=== PATIENT | male | born 1955 | race Caucasian/White ===

== ENCOUNTER 2021-02-08 20:04 | Inpatient (IN) | payer OTHER ==
[~2021-02-08] VITALS: Ht 182.9 cm; Wt 87.1 kg
--- NOTE | 2021-02-08 20:15 | NUR ---
PT BIBEMS FROM HOME C/O LOW O2 SAT 79%. COVID (+) 02/06/21. PT STATES HE HAD BODY ACHES AND CHILLS 2 WEEKS AGO. PT CURRENTLY DENIES ANY SOB. AMBULATORY ALERT AND ORIENTED X4.
--- NOTE | 2021-02-08 20:20 | NUR ---
BLOOD AND URINE COLLECTED AND SENT TO THE LAB.
--- NOTE | 2021-02-08 20:21 | NUR ---
COVID SWAB COLLECTED AND SENT TO LAB.
[2021-02-08 20:24] LABS: BASOPHILS % (AUTO) 0.2 % (0.0-2.0); HEMATOCRIT 45 % (39-51); HEMOGLOBIN 14.9 g/dL (13.5-17.5); LYMPHOCYTES # (AUTO) 0.8 K/uL (0.8-4.8); LYMPHOCYTES % (AUTO) 8.1 % (20.0-44.0); MEAN CORPUSCULAR HGB CONC 33 g/dl (31.0-36.0); MEAN CORPUSCULAR VOLUME 86 fL (80-96); MONOCYTES # (AUTO) 0.2 K/uL (0.1-1.30); MONOCYTES % (AUTO) 2.4 % (2.0-12.0); NEUTROPHILS # (AUTO) 8.8 K/uL (1.8-8.9); NEUTROPHILS % (AUTO) 89.3 % (43.0-81.0); PLATELET COUNT (AUTO) 196 K/uL (150-450); RED BLOOD CELL COUNT(AUTO) 5.21 MIL/uL (4.5-6.0); WHITE BLOOD COUNT (AUTO) 9.8 K/uL (4.3-11.0)
[2021-02-08] MEDS ORDERED: CEFTRIAXONE 1GM BAG (ER ONLY) 50 ML IV ONE ×2 (20:26→20:30)
[2021-02-08] MEDS ORDERED: DEXAMETHASONE SOD PHOSPHATE 10 MG/ML VIAL ONE (20:27)
[2021-02-08] MEDS ORDERED: AZITHROMYCIN 500 MG VIAL ONE (20:27)
[2021-02-08] MEDS ORDERED: DEXAMETHASONE SOD PHOSPHATE 10 MG/ML VIAL IV ONE (20:30)
[2021-02-08] MEDS ORDERED: AZITHROMYCIN 500 MG in IV D5W 250 ML IV ONE (20:30)
[2021-02-08] MEDS ORDERED: IV NS 0.9% 500 ML IV ONE (20:30)
--- NOTE | 2021-02-08 20:30 | NUR ---
ACCELERATOR OPERATOR AT BEDSIDE
[2021-02-08 20:46] LABS: CALCIUM, SERUM 7.9 mg/dL (8.5-10.1); CARBON DIOXIDE 26 mmol/L (21-32); CHLORIDE 103 mmol/L (98-107); CREATININE 1.5 mg/dL (0.6-1.3); GLUCOSE 214 mg/dL (74-106); SODIUM SERUM 140 mmol/L (136-145); UREA NITROGEN, BLOOD 22 mg/dL (7-18)
[2021-02-08 20:52] LABS: ALANINE AMINOTRANSFERASE 22 U/L (12-78); ALBUMIN 2.8 g/dL (3.4-5.0); ALKALINE PHOSPHATASE 59 U/L (46-116); ASPARTATE AMINOTRANSFERASE 30 U/L (15-37); BILIRUBIN,TOTAL 0.4 mg/dL (0.2-1.0); TOTAL PROTEIN, SERUM 7.2 g/dL (6.4-8.2)
[2021-02-08 21:21] LABS: CREATINE KINASE, TOTAL 103 U/L (39-308)
[2021-02-08 21:23] LABS: C-REACTIVE PROTEIN 15.4 mg/dL (0.0-0.9)
--- NOTE | 2021-02-08 21:25 | NUR ---
PANEL PAGED PER DR KRAUSE,
[2021-02-08 21:32] LABS: D-DIMER 0.76 mg/L(FEU (0.17-0.50)
[2021-02-08 21:48] LABS: FERRITIN 589 ng/mL (8-388)
--- NOTE | 2021-02-08 22:03 | NUR ---
UPDATED DAUGHTER ON FATHERS CONDITION.
--- NOTE | 2021-02-08 23:06 | NUR ---
COPIES OF LABS GIVEN TO DAUGHTER.
--- NOTE | 2021-02-08 23:09 | NUR ---
SPOKE TO CHARGE [facility], [place] BEDS ARE UNAVAILABLE. WILL BE NOTIFIED WHEN READY.
[2021-02-08] MEDS ORDERED: ZOLPIDEM TARTRATE 5 MG TABLET PO PRN (23:30)
[2021-02-08] MEDS ORDERED: Z GUARD REMEDY 2 OZ OINT TP PRN (23:30)
[2021-02-08] MEDS ORDERED: ONDANSETRON HCL/PF 4 MG/2 ML VIAL IVP PRN (23:30)
[2021-02-08] MEDS ORDERED: ACETAMINOPHEN 325 MG TABLET PO PRN (23:30)
[2021-02-08] MEDS: ENOXAPARIN SODIUM 40 MG/0.4 ML DISP.SYRIN SQ SCH (23:30)
--- NOTE | 2021-02-08 23:42 | NUR ---
LACTIC 3.7
[2021-02-08 23:49] LABS: BILIRUBIN,DIRECT 0.1 mg/dL (0.0-0.2)
[2021-02-09] VITALS (17 sets, daily range): BP systolic 110–158; BP diastolic 54–95
[2021-02-09] MEDS ORDERED: ENOXAPARIN SODIUM 40 MG/0.4 ML DISP.SYRIN SQ ONE (00:34)
--- NOTE | 2021-02-09 01:37 | NUR ---
DR. ARPIT FOSTER WITH PATIENT BEING ON HI-FLOW NASAL CANNULA.
--- NOTE | 2021-02-09 01:38 | NUR ---
report given to nurse pelaez.
--- NOTE | 2021-02-09 01:58 | NUR ---
pt discharged to room 108 in stable condition per acls policy.
--- NOTE | 2021-02-09 02:00 | NUR ---
ADMISSION NOTE. PATIENT ADMITTED TO ROOM 108 WITH DX OF VIRAL COVID PNEUMONIAE. TO ARPIT SANTIAGO DNP. NEW ORDERS RECIEVED. PT IS AXOX3 PT REPORTS HE FEELS CHILLS FATIGUE AND LOSS OF APPETITE. PT AMBULATED TO BATHROOM AND WAS FOUND TO HAVE SPO2 OF 75% PLACED BACK ON NON REBREATHER MASK AND PATIENT SATURATINT AT 88-90 % PER REPORT FROM ER RESPIRATORY IS TO COME AND PLACE PATIENT ON HIGH FLOW OXYGEN TO IMPROVE PATIENTS OXYGEN SATURATION. PT REPORTS FEELING MILDLY SHORT OF BREATH BREATHING IS TACHYPNEIC AND LABORED. EFT AC 18 GAUGE IS PRESENT. PER PATIENT HE CALLED EMS AFTER FEELING WEEK AND SOB AT HOME. AND WAS BROUGHT INTO ER. HX OF TESTING PPOSITIVE COVID TEST 02/06/21. COVID PRECAUTIONS IN PLACE. WILL CONT TO MONITOR AND CARRY OUT NEW ORDERS.
--- NOTE | 2021-02-09 02:19 | NUR ---
PT IS AWAKE AND ALERT ON NRB CAME FROM ER. PER DR SANTIAGO, PLACE PT ON HFNC 40L, 100% FIO2. RODRIGUEZ GRAFF AT BEDSIDE. WILL CONTINUE TO MONITOR.
--- NOTE | 2021-02-09 02:30 | NUR ---
ARNOLDO [phone] ARNOLDO CALLED. PATIENT STATES ITS OK TO UPDATE HER ON HIS CONDITION. UPDATED WITH CURRENT INFORMATION QUESTIONS CONCERNS ADDRESSED.
[2021-02-09 05:33] LABS: ABG BASE EXCESS 1.3 mmol/L; ABG OXYGEN SATURATION 91.1 % (92.0-98.5); ABG PCO2 29.6 mmHg (35.0-45.0); ABG PH 7.512 (7.350-7.450); ABG PO2 53.7 mmHg (75.0-100.0); AaDO2 629.7 mmHg; COHb 0.1 % (0.5-1.5); MetHb 0.3 % (0.0-1.5); O2Hb 90.7 % (94.0-97.0); SITE, ABG Right Radial; VENT MODE, BG VAPOTHERM 100% 40LPM
--- NOTE | 2021-02-09 05:51 | NUR ---
respiratory therapist jose completed abg. based on results patient was placed on non rebreather mask as well as on high flow oxygen. patient saturating 94% spo2. message left for cone marker provider sushant camejo notifying of results. will cont to monitor. .
[2021-02-09 06:24] LABS: BASOPHILS % (AUTO) 0.1 % (0.0-2.0); HEMATOCRIT 42 % (39-51); HEMOGLOBIN 14.3 g/dL (13.5-17.5); LYMPHOCYTES # (AUTO) 0.6 K/uL (0.8-4.8); LYMPHOCYTES % (AUTO) 6.2 % (20.0-44.0); MEAN CORPUSCULAR HGB CONC 34 g/dl (31.0-36.0); MEAN CORPUSCULAR VOLUME 85 fL (80-96); MONOCYTES # (AUTO) 0.4 K/uL (0.1-1.30); MONOCYTES % (AUTO) 4.1 % (2.0-12.0); NEUTROPHILS # (AUTO) 9.1 K/uL (1.8-8.9); NEUTROPHILS % (AUTO) 89.6 % (43.0-81.0); PLATELET COUNT (AUTO) 191 K/uL (150-450); RED BLOOD CELL COUNT(AUTO) 4.96 MIL/uL (4.5-6.0); WHITE BLOOD COUNT (AUTO) 10.1 K/uL (4.3-11.0)
[2021-02-09 07:06] LABS: ALBUMIN 2.5 g/dL (3.4-5.0); BILIRUBIN,TOTAL 0.4 mg/dL (0.2-1.0); CALCIUM, SERUM 7.7 mg/dL (8.5-10.1); CREATININE 1.2 mg/dL (0.6-1.3); MAGNESIUM 1.9 mg/dL (1.8-2.4); PHOSPHORUS 2.8 mg/dL (2.5-4.9); POTASSIUM 4.4 mmol/L (3.5-5.1); TOTAL PROTEIN, SERUM 6.6 g/dL (6.4-8.2)
[2021-02-09 07:18] LABS: THYROID STIMULATING HORMONE 0.24 uIU/mL (0.358-3.74)
[2021-02-09] MEDS: PANTOPRAZOLE 40 MG TABLET.DR PO SCH (07:43)
[2021-02-09] MEDS ORDERED: DEXA4TAB PO (08:06)
[2021-02-09] MEDS ORDERED: BENZ-38 PO (08:06)
[2021-02-09] MEDS ORDERED: LEVO500T90 PO (08:06)
[2021-02-09] MEDS ORDERED: ALBU18HF2 INH (08:06)
[2021-02-09] MEDS: ENOXAPARIN SODIUM 40 MG/0.4 ML DISP.SYRIN SQ SCH ×2 (08:25→21:20)
[2021-02-09] MEDS ORDERED: DEXAMETHASONE SOD PHOSPHATE 10 MG/ML VIAL IV SCH (09:00)
[2021-02-09] MEDS: DEXAMETHASONE SOD PHOSPHATE 10 MG/ML VIAL IV SCH (09:10)
[2021-02-09 09:35] LABS: ABG BASE EXCESS 1.6 mmol/L; ABG PCO2 33.1 mmHg (35.0-45.0); ABG PH 7.485 (7.350-7.450); ABG PO2 46.8 mmHg (75.0-100.0); AaDO2 633.1 mmHg; COHb 0.5 % (0.5-1.5); MetHb 0.1 % (0.0-1.5); O2Hb 86.5 % (94.0-97.0); SITE, ABG Right Radial
--- NOTE | 2021-02-09 09:43 | NUR ---
RT NOTE ABG RESULTS RELAYED TO MD BOYER.
[2021-02-09] MEDS: IV LR 1000 ML 1,000 ML IV PRN (10:10)
--- NOTE | 2021-02-09 10:10 | NUR ---
PT ARRIVED TO ICU ROOM 259 AT 1010 FROM 108 AT THIS TIME. BEDSIDE REPORT RECEIVED FROM AMARILYS FRIAS. PT ALERT OX3. HIGH FLOW NASAL CANNULA AND NON REBREATHER MASK ON PATIENT. PATIENTS SATS ARE 88-89% AT THIS TIME. PT SETTLED IN ROOM. PT INSTRUCTED TO PRONE MUCH POSSIBLE TO HELP WITH O2 SATURATIONS, PT AGREED. PER DR BOYER IF PATIENT CAN KEEP HIS O2 SATS OVER 90 WITH PRONING PT DOES NOT NEED TO BE INTUBATED AT THIS TIME. SCHEDULED ABG ORDERS TO FOLLOW UP. PT CHECKED ON HOURLY AND PRN BY NURSING STAFF.
[2021-02-09 10:24] LABS: VENT MODE, BG HFNC 40L/100% +NRB
[2021-02-09] MEDS ORDERED: TOCILIZUMAB 400 MG in IV NS 0.9% 80 ML IV ONE (10:30)
[2021-02-09] MEDS ORDERED: REMDESIVIR (CHARGED) 200 MG, *LOADING DOSE 1 EA in IV NS 0.9% 210 ML IV ONE (11:00)
[2021-02-09] MEDS: FLUTICASONE/VILANTEROL 1 EACH BLST.W.DEV IH SCH (11:30)
[2021-02-09 12:06] LABS: ABG BASE EXCESS 1.1 mmol/L; ABG OXYGEN SATURATION 91.3 % (92.0-98.5); ABG PCO2 31.6 mmHg (35.0-45.0); ABG PO2 56.8 mmHg (75.0-100.0); AaDO2 624.6 mmHg; COHb 0.5 % (0.5-1.5); MetHb 0.2 % (0.0-1.5); O2Hb 90.7 % (94.0-97.0); VENT MODE, BG HFNC 40 LPM +NRB
--- NOTE | 2021-02-09 12:09 | NUR ---
RT NOTE ABG RESULTS RELAYED TO MD BOYER.
[2021-02-09] MEDS ORDERED: TOCILIZUMAB 800 MG in IV NS 0.9% 60 ML IV ONE (15:00)
--- NOTE | 2021-02-09 18:53 | NUR ---
END OF SHIFT NOTE: PT IS COOPERATIVE WITH CARE. PT PRONED FOR A FEW HOURS THEN WITH ASSISTANCE TURNED TO RIGHT SIDE THEN LEFT SIDE. PT'S SATS MUCH BETTER IN PRONE POSITION, 97-98%. ON RIGHT SIDE 95-96%, LEFT SIDE 88-93%. PT ATTEMPTED TO SIT UP WITH HOB HIGH TO EAT DINNER BUT PATIENT DESATURATED AND PATIENT STATED HE WASN'T HUNGRY. RN ASSISTED PATIENT TO HIS SIDE WITHOUT DIFFICULTY, PT'S SATS RETURNED TO >90%. MIDLINE IS ORDERED FOR A MORE STABLE IV SITE WITH PATIENT PRONING AND TURNED COMPLETELY SIDE TO SIDE. MIDLINE RN SUPPOSED TO COME TONIGHT, WILL ENDORSE TO NEXT SHIFT. PT CHECKED ON HOURLY AND PRN BY NURSING STAFF.
[2021-02-09] MEDS: AZITHROMYCIN 500 MG in IV D5W 250 ML IV SCH (21:11)
[2021-02-09] MEDS: CEFTRIAXONE 1 G in IV D5W 50 ML IV SCH (21:11)
[2021-02-09] MEDS ORDERED: IV NS 0.9% 250 ML IV PRN (22:00)
--- NOTE | 2021-02-09 23:26 | NUR ---
patient awake alert with high flow on at 100% non rebreather at 15 lit. sat 915 lungs with rhonci to listen. with productive cough. has new midline in upper left arm infusing ivpb rocephin and zithromax. lr at 40 hr. patient on monitor sinus is voiding well in urinal at times sat drops below 90% 88, 87, no signs of distress at this time.
[2021-02-10] VITALS (26 sets, daily range): BP systolic 88–153; BP diastolic 34–104
[2021-02-10 04:27] LABS: BASOPHILS % (AUTO) 0.1 % (0.0-2.0); HEMATOCRIT 41 % (39-51); HEMOGLOBIN 14.1 g/dL (13.5-17.5); LYMPHOCYTES # (AUTO) 0.8 K/uL (0.8-4.8); LYMPHOCYTES % (AUTO) 8.2 % (20.0-44.0); MEAN CORPUSCULAR HGB CONC 34 g/dl (31.0-36.0); MEAN CORPUSCULAR VOLUME 85 fL (80-96); MONOCYTES # (AUTO) 0.7 K/uL (0.1-1.30); NEUTROPHILS # (AUTO) 8.2 K/uL (1.8-8.9); NEUTROPHILS % (AUTO) 84.7 % (43.0-81.0); PLATELET COUNT (AUTO) 216 K/uL (150-450); RED BLOOD CELL COUNT(AUTO) 4.86 MIL/uL (4.5-6.0); WHITE BLOOD COUNT (AUTO) 9.7 K/uL (4.3-11.0)
[2021-02-10 04:44] LABS: ALBUMIN 2.2 g/dL (3.4-5.0); BILIRUBIN,DIRECT 0.1 mg/dL (0.0-0.2); BILIRUBIN,TOTAL 0.4 mg/dL (0.2-1.0); MAGNESIUM 2.1 mg/dL (1.8-2.4); PHOSPHORUS 3.1 mg/dL (2.5-4.9); POTASSIUM 4.2 mmol/L (3.5-5.1); TOTAL PROTEIN, SERUM 6.3 g/dL (6.4-8.2)
[2021-02-10 04:49] LABS: CALCIUM, SERUM 7.4 mg/dL (8.5-10.1)
--- NOTE | 2021-02-10 07:30 | NUR ---
OPENING NOTE: REPORT RECEIVED FROM ENIO FRIAS. PT ALERT OX3. PT IS VERY COOPERATIVE WITH POSITIONING. PT'S PRONES LONG HE CAN, LAYS ON HIS SIDES AND KEEPS HIS NRB AND HI FLOW NASAL CANNULA ON ALL THE TIME. PT IS STAYING CALM AND APPEARS TO HAVE A POSITIVE OUTLOOK ON HIS CONDITION. PT CHECKED ON HOURLY AND PRN BY NURSING STAFF.
[2021-02-10] MEDS: FLUTICASONE/VILANTEROL 1 EACH BLST.W.DEV IH SCH (07:47)
[2021-02-10] MEDS: PANTOPRAZOLE 40 MG TABLET.DR PO SCH (07:48)
[2021-02-10] MEDS: DEXAMETHASONE SOD PHOSPHATE 10 MG/ML VIAL IV SCH (07:48)
[2021-02-10] MEDS: ENOXAPARIN SODIUM 40 MG/0.4 ML DISP.SYRIN SQ SCH ×2 (07:49→22:05)
[2021-02-10 10:25] LABS: ABG BASE EXCESS 2.6 mmol/L; ABG OXYGEN SATURATION 94.4 % (92.0-98.5); ABG PCO2 35.4 mmHg (35.0-45.0); ABG PH 7.479 (7.350-7.450); ABG PO2 65.9 mmHg (75.0-100.0); AaDO2 611.7 mmHg; COHb 0.3 % (0.5-1.5); MetHb 0.2 % (0.0-1.5); O2Hb 93.9 % (94.0-97.0); SITE, ABG Right Radial; VENT MODE, BG HFNC 40L/100%
[2021-02-10] MEDS: REMDESIVIR (CHARGED) 100 MG in IV NS 0.9% 100 ML IV SCH (11:34)
[2021-02-10] MEDS: IV LR 1000 ML 1,000 ML IV PRN (11:34)
--- NOTE | 2021-02-10 19:21 | NUR ---
END OF SHIFT NOTE: PT HAD AN UNEVENTFUL DAY. PT COMPLIANT ALL DAY WITH LYING PRONE OR ON EITHER SIDE. SATS AROUND 97% ALL DAY. PT'S COLOR APPEARS BETTER THAN THIS AM. PT IN GOOD SPIRITS, STAYING CALM. NO BM THIS SHIFT. PT REFUSED TO EAT MORE THAN SOME JELLO DUE TO HIS MOUTH BEING SORE. MEDS ORDERED TO HELP WITH PATIENTS MOUTH, WILL START TONIGHT. PT CHECKED ON HOURLY AND PRN BY NURSING STAFF.
--- NOTE | 2021-02-10 19:30 | NUR ---
RN NOTE RECEIVED PATIENT IN BED. ON OXYGEN 40L HIGH FLOW NASAL CANNULA AND 15L NONREBREATHER. SOB NOTED WHEN REPOSITIONING. NO C/O PAIN. EXTERNAL TELE MONITOR SINUS JENN AND SINUS RHYTHM. IN NO APPARENT DISTRESS. IV ACCESS IN SHERYL MIDLINE RUNNING LR@40ML/HR. RAC PATENT AND SALINE LOCKED. BED IS LOW AND LOCKED, HOB ELEVATED IN SEMI FOWLERS, SIDE RIAL SUP X2, CALL LIGHT WITHIN REACH. PATIENT IN RIGHT LATERAL POSITION. WILL CONTINUE TO MONITOR THROUGHOUT SHIFT.
[2021-02-10] MEDS: AZITHROMYCIN 500 MG in IV D5W 250 ML IV SCH (22:04)
[2021-02-10] MEDS: NYSTATIN (PYXIS) 500,000 UNIT/5 ML ORAL.SUSP PO SCH (22:04)
[2021-02-10] MEDS: FLUCONAZOLE (100 MG) 100 MG TABLET PO SCH (22:04)
[2021-02-10] MEDS: CEFTRIAXONE 1 G in IV D5W 50 ML IV SCH (22:04)
[2021-02-11] VITALS (24 sets, daily range): BP systolic 121–174; BP diastolic 65–101
[2021-02-11] MEDS: NYSTATIN (PYXIS) 500,000 UNIT/5 ML ORAL.SUSP PO SCH ×4 (03:15→20:00)
[2021-02-11 05:24] LABS: BASOPHILS % (AUTO) 0.1 % (0.0-2.0); HEMATOCRIT 43 % (39-51); HEMOGLOBIN 14.5 g/dL (13.5-17.5); LYMPHOCYTES # (AUTO) 0.7 K/uL (0.8-4.8); LYMPHOCYTES % (AUTO) 7.7 % (20.0-44.0); MEAN CORPUSCULAR HGB CONC 34 g/dl (31.0-36.0); MEAN CORPUSCULAR VOLUME 85 fL (80-96); MONOCYTES # (AUTO) 0.7 K/uL (0.1-1.30); MONOCYTES % (AUTO) 7.6 % (2.0-12.0); NEUTROPHILS % (AUTO) 84.6 % (43.0-81.0); PLATELET COUNT (AUTO) 246 K/uL (150-450); RED BLOOD CELL COUNT(AUTO) 5.04 MIL/uL (4.5-6.0); WHITE BLOOD COUNT (AUTO) 9.4 K/uL (4.3-11.0)
[2021-02-11 05:45] LABS: ALBUMIN 2.2 g/dL (3.4-5.0); BILIRUBIN,DIRECT 0.1 mg/dL (0.0-0.2); BILIRUBIN,TOTAL 0.6 mg/dL (0.2-1.0); CALCIUM, SERUM 7.6 mg/dL (8.5-10.1); MAGNESIUM 2.3 mg/dL (1.8-2.4); PHOSPHORUS 3.2 mg/dL (2.5-4.9); POTASSIUM 4.1 mmol/L (3.5-5.1); TOTAL PROTEIN, SERUM 6.1 g/dL (6.4-8.2)
[2021-02-11] MEDS: IV LR 1000 ML 1,000 ML IV PRN (06:29)
--- NOTE | 2021-02-11 07:02 | NUR ---
RN NOTE PATIENT RESTING IN BED. REMAINS ON OXYGEN 40L HIGH FLOW NASAL CANNULA AND 15L NONREBREATHER. NO PAIN. TELE MONITOR SINUS JENN AND SINUS RHYTHM THROUGHOUT SHIFT. NO DISTRESS. IV IN SHERYL MIDLINE RUNNING LR@40ML/HR. BED REMAINS LOW AND LOCKED, HOB ELEVATED IN SEMI FOWLERS, SIDE RIAL SUP X2, CALL LIGHT WITHIN REACH. PATIENT IS MOST COMFORTABLE IN RIGHT LATERAL POSITION. WILL ENDORSE TO ONCOMING SHIFT.
--- NOTE | 2021-02-11 07:30 | NUR ---
OPENING NOTE: REPORT RECEIVED FROM ROMMEL FRIAS. NO SIGNIFICANT CHANGES OVERNIGHT PER REPORT. PT CONTINUES TO BE COMPLIANT WITH CARE. 1 BM OVERNIGHT. PT CHECKED ON HOURLY BY NURSING STAFF
[2021-02-11] MEDS: FLUTICASONE/VILANTEROL 1 EACH BLST.W.DEV IH SCH (07:57)
[2021-02-11] MEDS: DEXAMETHASONE SOD PHOSPHATE 10 MG/ML VIAL IV SCH (07:57)
[2021-02-11] MEDS: PANTOPRAZOLE 40 MG TABLET.DR PO SCH (07:57)
[2021-02-11] MEDS: FLUCONAZOLE (100 MG) 100 MG TABLET PO SCH (07:57)
[2021-02-11] MEDS: ENOXAPARIN SODIUM 40 MG/0.4 ML DISP.SYRIN SQ SCH ×2 (07:59→19:15)
[2021-02-11] MEDS: REMDESIVIR (CHARGED) 100 MG in IV NS 0.9% 100 ML IV SCH (11:43)
[2021-02-11] MEDS: ENSURE CLEAR 237 ML LIQUID (MIX BERRY) PO SCH ×2 (13:30→17:18)
--- NOTE | 2021-02-11 17:05 | NUR ---
RT Pt was received awake and alert on high flow nasal cannula 40L and 100% FiO2 to with non rebreather at 15lpm. Non-rebreather was taken off and is now just on high flow nasal cannula 40L and 100%. Pt is cooperative and able to change positions on his own when told. No SOB or respiratory distress noted at this time. Addendum: 02/11/21 at 1755 by MARC MARTINEZ RT Amended: Links added.
--- NOTE | 2021-02-11 19:05 | NUR ---
RECEIVED PT ON BED AWAKE AA/O X3, ON HIGH FLOW 40L 100% SPO2 95% NO SIGNS OF SOB, PT IS ON RIGHT LATERAL POSITION, NO PAIN COMPLAINT, BEDSIDE MONITOR READS SINUS JENN 60'S HAVE SHERYL ML WITH ONGOING LR @ 40L/ HR INFUSING WELL HAVE LAC# 18 PATENT AND FLUSHED DRESSING CLEAN DRY AND INTACT, PT ABLE TO VERBALIZED NEEDS, BED ON LOWEST POSITION AND LOCKED SIDE RAILS UP X2 CALL LIGHT WITHIN REACH WILL CONT TO MONITOR
[2021-02-11] MEDS: CEFTRIAXONE 1 G in IV D5W 50 ML IV SCH (19:14)
--- NOTE | 2021-02-11 19:28 | NUR ---
END OF SHIFT NOTE: PT HAD A GOOD DAY. NRB TAKEN OFF TODAY. PT IS ON HIGH FLOW NASAL CANNULA 40L 100%. PT SAT UP IN THE CHAIR FOR LUNCH, ATE SMALL AMOUNT. PT PRONED FREQUENTLY TODAY. SCD'S APPLIED TO PATIENT BUT AFTER A FEW HOURS PT COMPLAINED THAT HE WAS GETTING TANGLED UP IN THEM WHEN HE TURNED AND ASKED IF THEY CAN BE OFF FOR A FEW HOURS. PT HAD 1 BM ON THIS SHIFT. APPETITE INCREASED TODAY. PT CHECKED ON HOURLY AND PRN BY NURSING STAFF.
[2021-02-11] MEDS: AZITHROMYCIN 500 MG in IV D5W 250 ML IV SCH (19:59)
[2021-02-12] VITALS (24 sets, daily range): BP systolic 116–158; BP diastolic 49–99
--- NOTE | 2021-02-12 01:07 | NUR ---
PT SLEEPING ON BED ON PRONE POSITION ON HIGH FLOW 02 40L 100% SPO2 98% NO SIGN OF RESPIRATORY DISTRESS, NO PAIN COMPLAINT WILL CONT TO MONITOR
[2021-02-12] MEDS: NYSTATIN (PYXIS) 500,000 UNIT/5 ML ORAL.SUSP PO SCH ×4 (03:11→20:04)
[2021-02-12 04:57] LABS: BASOPHILS % (AUTO) 0.2 % (0.0-2.0); EOSINOPHILS % (AUTO) 0.2 % (0.0-6.0); HEMATOCRIT 43 % (39-51); HEMOGLOBIN 14.8 g/dL (13.5-17.5); LYMPHOCYTES # (AUTO) 0.9 K/uL (0.8-4.8); LYMPHOCYTES % (AUTO) 10.8 % (20.0-44.0); MEAN CORPUSCULAR HGB CONC 34 g/dl (31.0-36.0); MEAN CORPUSCULAR VOLUME 84 fL (80-96); MONOCYTES # (AUTO) 0.6 K/uL (0.1-1.30); MONOCYTES % (AUTO) 6.6 % (2.0-12.0); NEUTROPHILS # (AUTO) 7.2 K/uL (1.8-8.9); NEUTROPHILS % (AUTO) 82.2 % (43.0-81.0); PLATELET COUNT (AUTO) 246 K/uL (150-450); RED BLOOD CELL COUNT(AUTO) 5.14 MIL/uL (4.5-6.0); WHITE BLOOD COUNT (AUTO) 8.8 K/uL (4.3-11.0)
[2021-02-12 05:09] LABS: ALBUMIN 2.3 g/dL (3.4-5.0); BILIRUBIN,DIRECT 0.2 mg/dL (0.0-0.2); BILIRUBIN,TOTAL 0.8 mg/dL (0.2-1.0); CALCIUM, SERUM 7.9 mg/dL (8.5-10.1); CREATININE 0.9 mg/dL (0.6-1.3); POTASSIUM 3.9 mmol/L (3.5-5.1); TOTAL PROTEIN, SERUM 5.9 g/dL (6.4-8.2)
[2021-02-12] MEDS: IV LR 1000 ML 1,000 ML IV PRN (06:37)
--- NOTE | 2021-02-12 06:53 | NUR ---
PT LYING ON BED AWAKE STILL ON HIGH FLOW 02 40L 100% SPO2 96% NO SIGN OF RESPIRATORY DISTRESS, NO PAIN COMPLAINT BEDSIDE MONITOR READS SINUS RHYTHM 60'S NO SIGNIFICANT CHANGES ON CONDITION NOTED ALL NEEDS ATTENDED, ALL DUE MEDS GIVEN BED ON LOWEST POSITION AND LOCKED SIDE RAILS UP X 2 CALL LIGHT WITHIN REACH WILL ENDORSED TO AM SHIFT NURSE
[2021-02-12] MEDS: FLUTICASONE/VILANTEROL 1 EACH BLST.W.DEV IH SCH (08:00)
--- NOTE | 2021-02-12 08:00 | NUR ---
RN NOTES RECEIVED PATIENT A/A/O X3 ON HIGH FLOW 02 40L 90% -CDHANGED VIA RT, SPO2 96% NO SIGN OF RESPIRATORY DISTRESS, NO PAIN COMPLAINT BEDSIDE MONITOR READS SINUS RHYTHM 62'S NO SIGNIFICANT CHANGES ON CONDITION NOTED ALL NEEDS ATTENDED, ALL DUE MEDS GIVEN BED ON LOWEST POSITION AND LOCKED SIDE RAILS UP X 2 CALL LIGHT. INFUSING LR @40ML/HR INTACT ON LEFT UA INTACT. SEEN PATIENT VIA RESEARCH LABORATORY SPECIALIST Dr REY, PATIENT WILL SEAT ON THE CHAIR FOR GETTING CONDITION BETTER. CALL LIGHT WITHIN TO REACH. WILL MONITORING.
[2021-02-12] MEDS: FLUCONAZOLE (100 MG) 100 MG TABLET PO SCH (08:01)
[2021-02-12] MEDS: PANTOPRAZOLE 40 MG TABLET.DR PO SCH (08:01)
[2021-02-12] MEDS: DEXAMETHASONE SOD PHOSPHATE 10 MG/ML VIAL IV SCH (08:02)
[2021-02-12] MEDS: ENOXAPARIN SODIUM 40 MG/0.4 ML DISP.SYRIN SQ SCH ×2 (08:04→20:02)
[2021-02-12] MEDS: ENSURE CLEAR 237 ML LIQUID (MIX BERRY) PO SCH ×3 (08:05→17:18)
--- NOTE | 2021-02-12 10:00 | NUR ---
RN NOTES PATIENT SEATING ON THE CHAIR, RR-98%, TOLERATING WELL.
[2021-02-12] MEDS: REMDESIVIR (CHARGED) 100 MG in IV NS 0.9% 100 ML IV SCH (11:34)
--- NOTE | 2021-02-12 14:47 | NUR ---
RN NOTES PATIENT TOLERATED LUNCH 35%, O2-97% FIO2-90, HR DOPED 47 AND INCREASING 60. CALL LIGHT WITHIN TO REACH. WILL MONITORING.
--- NOTE | 2021-02-12 18:30 | NUR ---
RN NOTES Patient HF, FIO2-90%, RESTING IN THE BED. VSS, due medication administered, TOLERATED DINNER 40%. infusing NS @40ml/hr, intact on left midline. call light within reach. endorsed oncoming nurse follow plan of care.
--- NOTE | 2021-02-12 19:30 | NUR ---
RN NOTE RECEIVED PATIENT IN BED. ON COVID ISOLATION. A/OX3. ON OXYGEN HIGH FLOW 40L/MIN O2 SAT 90%. RESPIRATIONS ARE EVEN AND UNLABORED AT REST. NO C/O PAIN AT THIS TIME. IN NO APPARENT DISTRESS. EXTERNAL TELE MONITOR READS SINUS JENN/ SINUS RHYTHM. IV ACCESS IN MEHREEN MIDLINE RUNNING LR@40ML/HR. BED IS LOW AND LOCKED, HOB ELEVATED IN SEMI FOWLERS, SIDE RAILS UP X2, CALL LIGHT WITHIN REACH. WILL CONTINUE TO MONITOR THROUGHOUT SHIFT.
[2021-02-12] MEDS: CEFTRIAXONE 1 G in IV D5W 50 ML IV SCH (20:02)
[2021-02-12] MEDS: AZITHROMYCIN 500 MG in IV D5W 250 ML IV SCH (20:53)
[2021-02-13] VITALS (24 sets, daily range): BP systolic 117–164; BP diastolic 66–99
[2021-02-13] MEDS: NYSTATIN (PYXIS) 500,000 UNIT/5 ML ORAL.SUSP PO SCH ×5 (03:28→20:44)
[2021-02-13 05:22] LABS: BASOPHILS % (AUTO) 0.1 % (0.0-2.0); EOSINOPHILS % (AUTO) 0.6 % (0.0-6.0); HEMATOCRIT 46 % (39-51); HEMOGLOBIN 15.7 g/dL (13.5-17.5); LYMPHOCYTES # (AUTO) 0.9 K/uL (0.8-4.8); LYMPHOCYTES % (AUTO) 11.6 % (20.0-44.0); MEAN CORPUSCULAR HGB CONC 34 g/dl (31.0-36.0); MEAN CORPUSCULAR VOLUME 85 fL (80-96); MONOCYTES # (AUTO) 0.5 K/uL (0.1-1.30); MONOCYTES % (AUTO) 6.5 % (2.0-12.0); NEUTROPHILS # (AUTO) 6.7 K/uL (1.8-8.9); NEUTROPHILS % (AUTO) 81.2 % (43.0-81.0); PLATELET COUNT (AUTO) 259 K/uL (150-450); RED BLOOD CELL COUNT(AUTO) 5.37 MIL/uL (4.5-6.0); WHITE BLOOD COUNT (AUTO) 8.2 K/uL (4.3-11.0)
[2021-02-13 05:42] LABS: ALBUMIN 2.8 g/dL (3.4-5.0); BILIRUBIN,DIRECT 0.2 mg/dL (0.0-0.2); CALCIUM, SERUM 7.8 mg/dL (8.5-10.1); POTASSIUM 4.2 mmol/L (3.5-5.1); TOTAL PROTEIN, SERUM 6.5 g/dL (6.4-8.2)
[2021-02-13] MEDS: IV LR 1000 ML 1,000 ML IV PRN (06:00)
--- NOTE | 2021-02-13 06:40 | NUR ---
RN NOTE PATIENT RESTING IN BED. A/OX3. ON OXYGEN HIGH FLOW 40L/MIN O2 SAT 90%. WHEN DESATURATING TO 82 , PATIENT ASKED TO DO SELF PRONING. O2 SAT INCREASED 99%. NO C/O PAIN EXTERNAL TELE MONITOR READS SINUS JENN/ SINUS RHYTHM THROUGHOUT THE NIGHT. IV MEHREEN MIDLINE RUNNING LR@40ML/HR. PATIENT WAS SITTING IN CHAIR. BED IS LOW AND LOCKED, HOB ELEVATED IN SEMI FOWLERS, SIDE RAILS UP X2, CALL LIGHT WITHIN REACH. WILL ENDORSE TO ONCOMING SHIFT.
--- NOTE | 2021-02-13 07:10 | NUR ---
RN OPENING NOTES RECEIVED PT RESTING IN BED. A/OX3-4. ON HIGH FLOW O2 40L/MIN, O2 SAT @90%. NO PAIN REPORTED AT THIS TIME. TELE MONITOR READS SINUS RHYTHM. IV ACCESS AT MEHREEN MIDLINE RUNNING LR @40ML/HR. SAFETY MEASURES IN PLACE. CALL LIGHT WITHIN REACH. BED LOCKED AND IN LOWEST POSITION WITH SIDE RAILS UP X2. WILL CONTINUE TO MONITOR.
[2021-02-13] MEDS: FLUCONAZOLE (100 MG) 100 MG TABLET PO SCH (08:18)
[2021-02-13] MEDS: PANTOPRAZOLE 40 MG TABLET.DR PO SCH (08:19)
[2021-02-13] MEDS: DEXAMETHASONE SOD PHOSPHATE 10 MG/ML VIAL IV SCH (08:19)
[2021-02-13] MEDS: ENOXAPARIN SODIUM 40 MG/0.4 ML DISP.SYRIN SQ SCH ×2 (08:23→20:14)
--- NOTE | 2021-02-13 09:18 | NUR ---
RT Pt received awake and alert on high flow nasal cannula, FiO2 was increased to 100% due to SpO2 of 86% when sitting up in bed. No SOB or respiratory distress noted at this time. Addendum: 02/13/21 at 1341 by MARC MARTINEZ RT Amended: Links added.
[2021-02-13] MEDS: ENSURE CLEAR 237 ML LIQUID (MIX BERRY) PO SCH ×3 (09:25→17:25)
[2021-02-13] MEDS: FLUTICASONE/VILANTEROL 1 EACH BLST.W.DEV IH SCH (09:25)
[2021-02-13] MEDS: REMDESIVIR (CHARGED) 100 MG in IV NS 0.9% 100 ML IV SCH (11:13)
--- NOTE | 2021-02-13 18:49 | NUR ---
RN CLOSING NOTES NO SIGNIFICANT CHANGES THROUGHOUT THE SHIFT. NO SOB OR ANY DISTRESS NOTED. NO PAIN REPORTED AT THIS TIME. ALL DUE MEDS GIVEN. NEEDS ATTENDED. KEPT CLEAN AND COMFORTABLE. SAFETY MEASURES IN PLACE. WILL ENDORSE TO NIGHT RN FOR LUIS.
--- NOTE | 2021-02-13 19:30 | NUR ---
RN NOTE RECEIVED PATIENT IN BED. COVID ISOLATION. A/OX3. ON OXYGEN HIGH FLOW 40L/MIN. RESTING COMFORTABLY. PATIENT DOES STATE HE IS UNCOMFORTABLE AND FEELS THE O2 IS TOO MUCH. WILL DISCUSS WITH RT ABOUT TITRATION. NO C/O PAIN AT THIS TIME. IN NO APPARENT DISTRESS. EXTERNAL TELE MONITOR READS SINUS JENN/ SINUS RHYTHM. IV ACCESS IN MEHREEN MIDLINE RUNNING LR@40ML/HR. BED IS LOW AND LOCKED, HOB ELEVATED IN SEMI FOWLERS, SIDE RAILS UP X2, CALL LIGHT WITHIN REACH. WILL CONTINUE TO MONITOR THROUGHOUT SHIFT.
[2021-02-14] VITALS (24 sets, daily range): BP systolic 114–153; BP diastolic 66–104
[2021-02-14] MEDS: NYSTATIN (PYXIS) 500,000 UNIT/5 ML ORAL.SUSP PO SCH ×4 (03:00→20:40)
[2021-02-14 04:46] LABS: BASOPHILS % (AUTO) 0.2 % (0.0-2.0); EOSINOPHILS % (AUTO) 2.2 % (0.0-6.0); HEMATOCRIT 43 % (39-51); HEMOGLOBIN 14.9 g/dL (13.5-17.5); LYMPHOCYTES # (AUTO) 1.3 K/uL (0.8-4.8); MEAN CORPUSCULAR HGB CONC 35 g/dl (31.0-36.0); MEAN CORPUSCULAR VOLUME 84 fL (80-96); MONOCYTES # (AUTO) 0.6 K/uL (0.1-1.30); MONOCYTES % (AUTO) 6.7 % (2.0-12.0); NEUTROPHILS # (AUTO) 6.4 K/uL (1.8-8.9); NEUTROPHILS % (AUTO) 75.9 % (43.0-81.0); PLATELET COUNT (AUTO) 226 K/uL (150-450); RED BLOOD CELL COUNT(AUTO) 5.14 MIL/uL (4.5-6.0); WHITE BLOOD COUNT (AUTO) 8.5 K/uL (4.3-11.0)
[2021-02-14 04:57] LABS: ALBUMIN 2.5 g/dL (3.4-5.0); BILIRUBIN,DIRECT 0.2 mg/dL (0.0-0.2); BILIRUBIN,TOTAL 0.8 mg/dL (0.2-1.0); CREATININE 0.9 mg/dL (0.6-1.3); PHOSPHORUS 3.4 mg/dL (2.5-4.9); POTASSIUM 3.8 mmol/L (3.5-5.1); TOTAL PROTEIN, SERUM 5.8 g/dL (6.4-8.2)
--- NOTE | 2021-02-14 06:20 | NUR ---
RN NOTE RESTING IN BED. A/OX3. ON OXYGEN HIGH FLOW 30L/MIN. RESTING COMFORTABLY. BEST O2 SATURATION WHEN PRONING OR ON EITHER LATERAL SIDE. NO C/O PAIN. NO DISTRESS. TELE MONITOR READS SINUS JENN/ SINUS RHYTHM THROUGHOUT SHIFT. IV IN MEHREEN MIDLINE RUNNING LR@40ML/HR. BED IS LOW AND LOCKED, HOB ELEVATED IN SEMI FOWLERS, SIDE RAILS UP X2, CALL LIGHT WITHIN REACH. WILL ENDORSE TO ONCOMING SHIFT.
[2021-02-14] MEDS: IV LR 1000 ML 1,000 ML IV PRN (07:09)
--- NOTE | 2021-02-14 07:15 | NUR ---
RN NOTE RECEIVED PATIENT RESTING IN BED, IN MODERATE HIGH BACK REST. A/OX3. ON OXYGEN HIGH FLOW 30L/MIN. RESTING COMFORTABLY. O2 SATURATION OF 95%. NO DISTRESS NOTED AT THIS TIME. TELE MONITOR READS SINUS CHANDA. IV IN MEHREEN MIDLINE RUNNING LR@40ML/HR. BED IS LOW AND LOCKED, SIDE RAILS UP X2, CALL LIGHT WITHIN REACH. WILL CONTINUE TO MONITOR.
[2021-02-14] MEDS: DEXAMETHASONE SOD PHOSPHATE 10 MG/ML VIAL IV SCH (08:05)
[2021-02-14] MEDS: PANTOPRAZOLE 40 MG TABLET.DR PO SCH (08:05)
[2021-02-14] MEDS: FLUCONAZOLE (100 MG) 100 MG TABLET PO SCH (08:06)
[2021-02-14] MEDS: ENOXAPARIN SODIUM 40 MG/0.4 ML DISP.SYRIN SQ SCH ×2 (08:13→20:15)
[2021-02-14] MEDS: ENSURE CLEAR 237 ML LIQUID (MIX BERRY) PO SCH ×3 (08:14→17:01)
[2021-02-14] MEDS: FLUTICASONE/VILANTEROL 1 EACH BLST.W.DEV IH SCH (08:14)
[2021-02-14] MEDS ORDERED: TEMAZEPAM 7.5 MG CAPSULE PO PRN (15:30)
--- NOTE | 2021-02-14 19:13 | NUR ---
RN NOTE PATIENT RESTING IN BED, IN MODERATE HIGH BACK REST. A/OX4. ON OXYGEN HIGH FLOW 30L/MIN. RESTING COMFORTABLY. O2 SATURATION OF 98%. NO DISTRESS NOTED THROUGHOUT THE SHIFT. TELE MONITOR READS SINUS CHANDA. IV IN MEHREEN MIDLINE RUNNING LR@40ML/HR. BED IS LOW AND LOCKED, SIDE RAILS UP X2, CALL LIGHT WITHIN REACH. ENDORSED TO INDUSTRIAL ACCOUNTANT NURSE FOR LUIS.
--- NOTE | 2021-02-14 20:00 | NUR ---
RN NOTE RECEIVED PT IN BED, ALERT AND ORIENTED X4. ON HIGH FLOW NC AT 30L,100%. PT DENIES ANY SOB, NO S/SX OF DISTRESS NOTED. O2 SAT AT 93%. ON TELE MONITORING SHOWS SR WITH HR OF 60S, DENIES ANY PAIN. MIDLINE ON MEHREEN PATENT AND INTACT, LR RUNNING AT 40CC/HR. ALL SAFETY MEASURES IN PLACE PER PROTOCOL. WILL CONTINUE TO MONITOR.
[2021-02-15] VITALS (26 sets, daily range): BP systolic 112–182; BP diastolic 50–146
[2021-02-15] MEDS: NYSTATIN (PYXIS) 500,000 UNIT/5 ML ORAL.SUSP PO SCH ×5 (03:00→21:03)
[2021-02-15 04:42] LABS: BASOPHILS % (AUTO) 0.2 % (0.0-2.0); EOSINOPHILS % (AUTO) 2.1 % (0.0-6.0); HEMATOCRIT 42 % (39-51); HEMOGLOBIN 14.7 g/dL (13.5-17.5); LYMPHOCYTES % (AUTO) 10.8 % (20.0-44.0); MEAN CORPUSCULAR HGB CONC 35 g/dl (31.0-36.0); MEAN CORPUSCULAR VOLUME 84 fL (80-96); MONOCYTES # (AUTO) 0.6 K/uL (0.1-1.30); MONOCYTES % (AUTO) 6.3 % (2.0-12.0); NEUTROPHILS # (AUTO) 7.2 K/uL (1.8-8.9); NEUTROPHILS % (AUTO) 80.6 % (43.0-81.0); PLATELET COUNT (AUTO) 243 K/uL (150-450); RED BLOOD CELL COUNT(AUTO) 5.06 MIL/uL (4.5-6.0)
[2021-02-15 04:55] LABS: CREATININE 0.9 mg/dL (0.6-1.3); POTASSIUM 3.9 mmol/L (3.5-5.1)
[2021-02-15] MEDS: IV LR 1000 ML 1,000 ML IV PRN (05:40)
--- NOTE | 2021-02-15 07:08 | NUR ---
RN NOTE PT ABLE TO MAKE NEEDS KNOWN. NO SIGNIFICANT CHANGES NOTED. PT CONTINUE ON HIGH FLOW AT 30L, 100% FIO2. DENIES ANY SOB, NO DISTRESS NOTED. IVF LR INFUSING WELL ON MEHREEN ML, NO S/SX OF INFILTRATION NOTED. PT ABLE TO USE URINAL. ALL NEEDS ATTENDED. ENDORSED TO NEXT SHIFT NURSE FOR LUIS.
--- NOTE | 2021-02-15 07:33 | NUR ---
OPENING NOTE: REPORT RECEIVED FROM SHA FRIAS. PT ALERT OX3. PER REPORT PT DID NOT SLEEP WELL LAST NIGHT. PT ON HIGH FLOW NASAL CANNULA 30L 100%. PT CHECKED ON HOURLY AND PRN BY NURSING STAFF.
[2021-02-15] MEDS: ENSURE CLEAR 237 ML LIQUID (MIX BERRY) PO SCH ×4 (07:45→12:46)
[2021-02-15] MEDS: FLUCONAZOLE (100 MG) 100 MG TABLET PO SCH (07:54)
[2021-02-15] MEDS: PANTOPRAZOLE 40 MG TABLET.DR PO SCH (07:54)
[2021-02-15] MEDS: DEXAMETHASONE SOD PHOSPHATE 10 MG/ML VIAL IV SCH (07:54)
[2021-02-15] MEDS: FLUTICASONE/VILANTEROL 1 EACH BLST.W.DEV IH SCH (07:54)
[2021-02-15] MEDS: ENOXAPARIN SODIUM 40 MG/0.4 ML DISP.SYRIN SQ SCH ×2 (07:56→19:36)
[2021-02-15 08:48] LABS: ABG BASE EXCESS 0.8 mmol/L; ABG OXYGEN SATURATION 92.9 % (92.0-98.5); ABG PCO2 34.3 mmHg (35.0-45.0); ABG PH 7.461 (7.350-7.450); ABG PO2 61.7 mmHg (75.0-100.0); AaDO2 508.8 mmHg; COHb 0.6 % (0.5-1.5); MetHb 0.2 % (0.0-1.5); O2Hb 92.2 % (94.0-97.0); SITE, ABG Right Radial; VENT MODE, BG HFNC 30L 85%
--- NOTE | 2021-02-15 18:07 | NUR ---
END OF SHIFT NOTE: PT HAD AN UNEVENTFUL SHIFT. PT ATE 100% OF ALL MEALS WITHOUT DIFFICULTY. HI FLOW NASAL CANNULA TURNED DOWN TO 30L AT 85% THIS AM WITHOUT DIFFICULTY. PT STATED HE FEELS LESS SHORT OF BREATH THAN PREVIOUS DAYS. PT APPEARS TO BE IN GOOD SPIRITS. PT CHECKED ON HOURLY AND PRN BY NURSING STAFF.
--- NOTE | 2021-02-15 19:00 | NUR ---
RN NOTE RECEIVED REPORT FROM SEB FRIAS, PATIENT IN BED, AO X 4, IN NO S/SX OF ACUTE DISTRESS AT THIS TIME. BREATHING EVEN AND UNLABORED, SATURATION AT 93% ON HIGH FLOW AT 30 LPM FIO2 85%, SR ON THE MONITOR, HR IS 73. NOTED MEHREEN MIDLINE, PATENT AND FLUSHING WELL, NO S/S OF INFECTION OR INFILTRATION WITH IV FLUID OF LR INFUSING AT 40 ML/HR. SAFETY MEASURES IMPLEMENTED. PATIENT BED ALARM IS ON. HEAD OF BED ELEVATED. BED IS LOCKED, IN LOWEST POSITION AND SIDE RAILS UP. CALL LIGHT WITHIN REACH OF THE PATIENT. WILL CONTINUE TO MONITOR AND REASSESS FOR ANY CHANGES.
[2021-02-15] MEDS ORDERED: TEMAZEPAM 7.5 MG CAPSULE PO SCH (22:00)
[2021-02-16] VITALS (21 sets, daily range): BP systolic 112–161; BP diastolic 64–106
--- NOTE | 2021-02-16 00:30 | NUR ---
RN NOTE NOTED PT SATURATION AT 99% ON PRONE POSITION, PT ABLE TO STAY PRONED, SATURATION AT 100% ON R SIDE LYING. WILL CONT TO MONITOR.
[2021-02-16] MEDS: NYSTATIN (PYXIS) 500,000 UNIT/5 ML ORAL.SUSP PO SCH ×5 (02:09→20:49)
[2021-02-16 04:45] LABS: BASOPHILS % (AUTO) 0.3 % (0.0-2.0); EOSINOPHILS % (AUTO) 1.3 % (0.0-6.0); HEMATOCRIT 43 % (39-51); HEMOGLOBIN 14.6 g/dL (13.5-17.5); LYMPHOCYTES # (AUTO) 1.1 K/uL (0.8-4.8); LYMPHOCYTES % (AUTO) 11.1 % (20.0-44.0); MEAN CORPUSCULAR HGB CONC 34 g/dl (31.0-36.0); MEAN CORPUSCULAR VOLUME 85 fL (80-96); MONOCYTES # (AUTO) 0.7 K/uL (0.1-1.30); MONOCYTES % (AUTO) 6.6 % (2.0-12.0); NEUTROPHILS # (AUTO) 8.2 K/uL (1.8-8.9); NEUTROPHILS % (AUTO) 80.7 % (43.0-81.0); PLATELET COUNT (AUTO) 252 K/uL (150-450); RED BLOOD CELL COUNT(AUTO) 5.04 MIL/uL (4.5-6.0); WHITE BLOOD COUNT (AUTO) 10.2 K/uL (4.3-11.0)
[2021-02-16 05:01] LABS: MAGNESIUM 2.1 mg/dL (1.8-2.4); POTASSIUM 3.9 mmol/L (3.5-5.1)
[2021-02-16] MEDS: IV LR 1000 ML 1,000 ML IV PRN (06:30)
--- NOTE | 2021-02-16 07:26 | NUR ---
RN NOTE PT REMAINS IN ROOM, NO SIGN OF ACUTE DISTRESS NOTED, SATURATION AT 94% ON 30 LPM VIA HIGH FLOW NC AT 85% FIO2, 98-99% WHEN PRONE/SIDE LYING, SR-SB AT 50-60'S ON THE MONITOR, IV FLUID OF LR INFUSING AT 40 ML/HR. APPROPRIATE ISOLATION AND SAFETY MEASURES IN PLACE PER PROTOCOL. ENDORSED TO SONJA RN FOR CONTINUATION OF CARE.
--- NOTE | 2021-02-16 07:30 | NUR ---
MACHINE SHOP INSPECTOR OPENING NOTES Patient received in bed on high flow 02 via n/c with 02 sat of 96%. No c/o pain or discomfort. Patient did not c/o difficulty breathing. HOB kept elevated. Lactated ringer running at 40 cc/hour. Bed is in lowest and locked position. Call light with in reach.
[2021-02-16] MEDS: PANTOPRAZOLE 40 MG TABLET.DR PO SCH (08:30)
[2021-02-16] MEDS: DEXAMETHASONE SOD PHOSPHATE 10 MG/ML VIAL IV SCH (08:30)
[2021-02-16] MEDS: FLUCONAZOLE (100 MG) 100 MG TABLET PO SCH (08:30)
[2021-02-16] MEDS: ENOXAPARIN SODIUM 40 MG/0.4 ML DISP.SYRIN SQ SCH ×2 (08:30→20:50)
[2021-02-16] MEDS: FLUTICASONE/VILANTEROL 1 EACH BLST.W.DEV IH SCH (09:18)
--- NOTE | 2021-02-16 17:33 | NUR ---
RT Pt was received on high flow nasal cannula, pt titrated to low flow nasal cannula at 6L and is tolerating well with adequate SpO2. Pt is awake and alert, he is stating that he feels an improvement with his breathing. High flow nasal cannula is on stand by at this time. No SOB or respiratory distress noted. Addendum: 02/16/21 at 1734 by MARC MARTINEZ RT Amended: Links added.
--- NOTE | 2021-02-16 18:47 | NUR ---
Patient was transferred to [facility] with tele box in good stable condition on 02 via n/c at 6 lpm with 02 sat of 04%. Report given to zaira.No sob noted.
--- NOTE | 2021-02-16 19:35 | NUR ---
RN OPENING NOTES: RECEIVED PT A/OX4 IN BED RESTING COMFORTABLY. PATIENT IN NO S/SX OF ACUTE DISTRESS AT THIS TIME. NO SOB NOTED. PATIENT'S BREATHING IS EVEN AND UNLABORED. PATIENT IS ON 6L OF OXYGEN VIA NC; TOLERATING WELL. PATIENT ON REGULAR DIET; TOLERATES WELL. NOTED IV SITE ON L UA MIDLINE ; PATENT, INTACT AND FLUSHING WELL; NO S/S OF INFECTION OR INFILTRATION. WITH IV FLUID RUNNING ORDERED.SAFETY MEASURES HAVE BEEN PROVIDED AND IMPLEMENTED. PATIENT BED ALARM IS ON. HEAD OF BED ELEVATED. BED IS LOCKED, IN LOWEST POSITION AND SIDE RAILS UP. CALL LIGHT WITHIN REACH OF THE PATIENT. APPLICABLE ISOLATION PRECAUTIONS IN PLACE. WILL CONTINUE TO MONITOR AND REASSESS FOR ANY CHANGES AND WILL CARRY OUT ANY ONGOING AND ACTIVE MD ORDER.
--- NOTE | 2021-02-16 19:51 | NUR ---
RN NOTES RECIEVED PATIENT FROM ICU, O 2 NC APPLIED WITH HUMIDIFIER AT 6LPM EFFECTIVE O2 LEVEL 92-96 %, NO SOB AND NO DISTRES NOTED, EDUCATED PATIENT ON HOW TO USE THE INCENTIVE SPIROMETER AND PATIENT WAS ABLE TO UNDERSTAND AND DEMONSTRATE HOW TO USE INCENTIVE SPIROMETER BACK TO HELP INCREASE STRENGTH AND EXPANSION OF LUNGS, ENCOURAGED TO REST AND DRINK FLUIDS AND LED IN PRAYER TO HELP EASE ANXIETY AND STRESS OF THE COVID SICKNESS, ABLE TO MAKE NEEDS KNOWN AND ALL SAFETY MEASURES IN PLACE, BED WHEELS LOCKED AND BED LOW TO FLOOR, CALL LIGHT IN REACH. NO SIGNIFICANT CHANGES NOTED ENDORSED TO ONCOMING SHIFT TO ENCOURAGE USE OF URINAL TO AVOID ANY FALLS AND TO SAVE STRENGTH , COMPLIANT WITH CARE AND ALL NEEDS MET IN A TIMELY MANNER
[2021-02-16] MEDS: TEMAZEPAM 7.5 MG CAPSULE PO SCH (21:06)
[2021-02-17] VITALS: BP 122/53
[2021-02-17] MEDS: NYSTATIN (PYXIS) 500,000 UNIT/5 ML ORAL.SUSP PO SCH ×3 (03:01→15:33)
[2021-02-17 04:00] VITALS: BP 147/100
--- NOTE | 2021-02-17 06:23 | NUR ---
RN NOTES NOTED PT HAD EPISODE OF VTACH;LOIDA FORMAN NOTIFIED. UX DEVELOPER MADE AWARE. Addendum: 02/18/21 at 0008 by ELVA DE ANDA RN RN NOTES PLS DISREGARD WRONG PT CHART Addendum: 02/18/21 at 0010 by ELVA DE ANDA RN PLS DISREGARD LAST NOTE; 1ST ENTRY WAS A VALID NOTE
[2021-02-17 06:54] LABS: CREATININE 0.9 mg/dL (0.6-1.3); MAGNESIUM 2.3 mg/dL (1.8-2.4); POTASSIUM 3.9 mmol/L (3.5-5.1)
--- NOTE | 2021-02-17 06:57 | NUR ---
RN CLOSING NOTE: PATIENT REMAINS IN ROOM IN NO SIGNS OF RESPIRATORY DISTRESS, PATIENT ON 6L OF 02 VIA NC ;TOLERATING WELL SATURATING @ >93% SP02. SAFETY MEASURES IMPLEMENTED, BED IN LOWEST POSITION, LOCKED, SIDE RAILS UP, CALL LIGHT WITHIN REACH. ALL NEEDS AND ORDERS ADDRESSED DURING THE SHIFT. IV ACCESS MAINTAINED INTACT, SECURED AND FLUSHING WELL. ALL DUE MEDS GIVEN ORDERED & SCHEDULED ; PATIENT TOLERATED WELL. PATIENT KEPT CLEAN & COMFORTABLE WITHIN THE SHIFT. PATIENT ENDORSED TO INCOMING SHIFT RN WITH STABLE VITAL SIGN AND FOR CONTINUITY OF CARE.
[2021-02-17 07:09] LABS: FERRITIN 407 ng/mL (8-388)
[2021-02-17 07:12] LABS: C-REACTIVE PROTEIN < 0.2 mg/dL (0.0-0.9)
--- NOTE | 2021-02-17 07:15 | NUR ---
RN OPENING NOTES RECEIVED PT IN BED. A/O X4. ON 6L OF O2 VIA NC. NO SOB OR ANY S/S OF RESPIRATORY DISTRESS. IV ACCESS INTACT AND FLUSHING WELL. NO PAIN REPORTED AT THIS TIME. SAFETY MEASURES IMPLEMENTED. CALL LIGHT WITHIN REACH. BED LOCKED AND IN LOWEST POSITION WITH SIDE RAILS UP X2. WILL CONTINUE TO MONITOR.
[2021-02-17 08:00] VITALS: BP 147/93
[2021-02-17] MEDS: PANTOPRAZOLE 40 MG TABLET.DR PO SCH (08:30)
[2021-02-17] MEDS: DEXAMETHASONE SOD PHOSPHATE 10 MG/ML VIAL IV SCH (08:30)
[2021-02-17] MEDS: ENOXAPARIN SODIUM 40 MG/0.4 ML DISP.SYRIN SQ SCH ×2 (08:31→20:41)
[2021-02-17] MEDS: FLUTICASONE/VILANTEROL 1 EACH BLST.W.DEV IH SCH (08:31)
[2021-02-17 09:54] LABS: BASOPHILS % (AUTO) 0.5 % (0.0-2.0); HEMATOCRIT 44 % (39-51); LYMPHOCYTES # (AUTO) 1.5 K/uL (0.8-4.8); LYMPHOCYTES % (AUTO) 15.4 % (20.0-44.0); MEAN CORPUSCULAR HGB CONC 34 g/dl (31.0-36.0); MEAN CORPUSCULAR VOLUME 86 fL (80-96); MONOCYTES # (AUTO) 0.6 K/uL (0.1-1.30); MONOCYTES % (AUTO) 6.3 % (2.0-12.0); NEUTROPHILS # (AUTO) 7.3 K/uL (1.8-8.9); NEUTROPHILS % (AUTO) 76.8 % (43.0-81.0); PLATELET COUNT (AUTO) 268 K/uL (150-450); RED BLOOD CELL COUNT(AUTO) 5.13 MIL/uL (4.5-6.0); WHITE BLOOD COUNT (AUTO) 9.6 K/uL (4.3-11.0)
[2021-02-17 10:05] LABS: BILIRUBIN,DIRECT 0.2 mg/dL (0.0-0.2); BILIRUBIN,TOTAL 0.8 mg/dL (0.2-1.0)
[2021-02-17 12:00] VITALS: BP 112/77
[2021-02-17 16:00] VITALS: BP 121/70
[2021-02-17] MEDS ORDERED: IV NS 0.9% 1,000 ML IV ONE (16:00)
--- NOTE | 2021-02-17 18:48 | NUR ---
RN CLOSING NOTES NO SIGNIFICANT CHANGES THROUGHOUT THE SHIFT. NO SOB OR ANY DISTRESS NOTED. NO PAIN REPORTED AT THIS TIME. ALL DUE MEDS GIVEN. KEPT CLEAN AND COMFORTABLE. SAFETY MEASURES IN PLACE. WILL ENDORSE TO NIGHT RN FOR LUIS.
[2021-02-17 20:00] VITALS: BP 142/78
[2021-02-17] MEDS: TEMAZEPAM 7.5 MG CAPSULE PO SCH (21:03)
--- NOTE | 2021-02-17 23:00 | NUR ---
RN NOTES PATIENT REMAINED TO BE IN NO SIGNS OF ACUTE RESPIRATORY DISTRESS , VITAL SIGNS WNL AT THIS TIME. MOTIVATIONAL SPEAKER MADE AWARE. WILL CONTINUE TO MONITOR AND REASSESS FOR ANY CHANGES THROUGHOUT THE SHIFT.
[2021-02-18] VITALS: BP 125/65
[2021-02-18 04:00] VITALS: BP 155/99
--- NOTE | 2021-02-18 06:46 | NUR ---
RN CLOSING NOTE: PATIENT REMAINS IN ROOM IN NO SIGNS OF RESPIRATORY DISTRESS, PATIENT ON 6L OF 02 VIA NC ;TOLERATING WELL SATURATING @ >95% SP02. SAFETY MEASURES IMPLEMENTED, BED IN LOWEST POSITION, LOCKED, SIDE RAILS UP, CALL LIGHT WITHIN REACH. ALL NEEDS AND ORDERS ADDRESSED DURING THE SHIFT. IV ACCESS MAINTAINED INTACT, SECURED AND FLUSHING WELL. ALL DUE MEDS GIVEN ORDERED & SCHEDULED ; PATIENT TOLERATED WELL. PATIENT KEPT CLEAN & COMFORTABLE WITHIN THE SHIFT. PATIENT ENDORSED TO INCOMING SHIFT RN WITH STABLE VITAL SIGN AND FOR CONTINUITY OF CARE.
--- NOTE | 2021-02-18 07:10 | NUR ---
RN NOTE PATIENT OBSERVED IN BED, AWAKE ALERT AND ORIENTED X4, ABLE TO VERBALIZE NEEDS ON O2 VIA NC @6LPM O2 SAT OF 95%, BREATHING EVENA DN UNLABORED, WITH MEHREEN MIDLINE PATENT INFUSING WELL, ON TELE MONITOR SR HR OF 97, BED WHEELS LOCK, CALL LIGHT WITHIN REACH, SAFETY MEASURES OBSERVED, CALL LIGHT WITHIN REACH.
[2021-02-18 07:50] LABS: BASOPHILS % (AUTO) 0.1 % (0.0-2.0); EOSINOPHILS % (AUTO) 0.4 % (0.0-6.0); HEMATOCRIT 43 % (39-51); HEMOGLOBIN 14.6 g/dL (13.5-17.5); LYMPHOCYTES # (AUTO) 1.8 K/uL (0.8-4.8); LYMPHOCYTES % (AUTO) 17.6 % (20.0-44.0); MEAN CORPUSCULAR HGB CONC 34 g/dl (31.0-36.0); MEAN CORPUSCULAR VOLUME 85 fL (80-96); MONOCYTES # (AUTO) 0.8 K/uL (0.1-1.30); MONOCYTES % (AUTO) 8.3 % (2.0-12.0); NEUTROPHILS # (AUTO) 7.3 K/uL (1.8-8.9); NEUTROPHILS % (AUTO) 73.6 % (43.0-81.0); PLATELET COUNT (AUTO) 283 K/uL (150-450); RED BLOOD CELL COUNT(AUTO) 5.01 MIL/uL (4.5-6.0)
[2021-02-18 08:00] VITALS: BP 138/96
[2021-02-18 08:21] LABS: CREATININE 0.9 mg/dL (0.6-1.3); MAGNESIUM 2.1 mg/dL (1.8-2.4); POTASSIUM 3.8 mmol/L (3.5-5.1)
[2021-02-18] MEDS: DEXAMETHASONE SOD PHOSPHATE 10 MG/ML VIAL IV SCH (08:32)
[2021-02-18] MEDS: ENOXAPARIN SODIUM 40 MG/0.4 ML DISP.SYRIN SQ SCH ×2 (08:32→20:42)
[2021-02-18] MEDS: PANTOPRAZOLE 40 MG TABLET.DR PO SCH (08:32)
[2021-02-18] MEDS: FLUTICASONE/VILANTEROL 1 EACH BLST.W.DEV IH SCH (08:40)
[2021-02-18 12:00] VITALS: BP 109/67
[2021-02-18 16:00] VITALS: BP 111/66
[2021-02-18] MEDS ORDERED: IV NS 0.9% 1,000 ML IV ONE (16:00)
--- NOTE | 2021-02-18 16:00 | NUR ---
RN NOTE NOTIFIED MISSY MARMOLEJO PATIENT LACTIC ACID OF 4.7, ADVISOR ADVOCATE ANGEL [employer] FOUNDER ORDERED BOLUS 1000ML NS BOLUS, ORDERS NOTED AND CARRIED OUT.
[2021-02-18] MEDS: IV LR 1000 ML 1,000 ML IV PRN (17:52)
--- NOTE | 2021-02-18 18:58 | NUR ---
RN NOTE PATIENT OBSERVED IN BED, AWAKE ALERT AND ORIENTED X4, ABLE TO VERBALIZE NEEDS ON O2 VIA NC @6LPM O2 SAT OF 95%, BREATHING EVEN AND UNLABORED, WITH MEHREEN MIDLINE PATENT INFUSING WELL, ON TELE MONITOR SR HR OF 97, BED WHEELS LOCK, CALL LIGHT WITHIN REACH, SAFETY MEASURES OBSERVED, CALL LIGHT WITHIN REACH. WILL ENDORSE TO NOC SHIFT
[2021-02-18 20:00] VITALS: BP 129/86
[2021-02-18] MEDS: TEMAZEPAM 7.5 MG CAPSULE PO SCH (21:03)
[2021-02-19] VITALS: BP 152/92
[2021-02-19 04:00] VITALS: BP 150/92
[2021-02-19 05:48] LABS: BASOPHILS # (AUTO) 0.1 K/uL (0.0-0.2); BASOPHILS % (AUTO) 1.2 % (0.0-2.0); EOSINOPHILS % (AUTO) 0.3 % (0.0-6.0); HEMATOCRIT 44 % (39-51); HEMOGLOBIN 14.6 g/dL (13.5-17.5); LYMPHOCYTES % (AUTO) 19.7 % (20.0-44.0); MEAN CORPUSCULAR HGB CONC 34 g/dl (31.0-36.0); MEAN CORPUSCULAR VOLUME 86 fL (80-96); MONOCYTES # (AUTO) 0.9 K/uL (0.1-1.30); MONOCYTES % (AUTO) 8.7 % (2.0-12.0); NEUTROPHILS # (AUTO) 7.3 K/uL (1.8-8.9); NEUTROPHILS % (AUTO) 70.1 % (43.0-81.0); PLATELET COUNT (AUTO) 299 K/uL (150-450); RED BLOOD CELL COUNT(AUTO) 5.09 MIL/uL (4.5-6.0); WHITE BLOOD COUNT (AUTO) 10.4 K/uL (4.3-11.0)
[2021-02-19 06:16] LABS: ALBUMIN 2.8 g/dL (3.4-5.0); BILIRUBIN,DIRECT 0.2 mg/dL (0.0-0.2); BILIRUBIN,TOTAL 0.8 mg/dL (0.2-1.0); CALCIUM, SERUM 8.3 mg/dL (8.5-10.1); MAGNESIUM 2.2 mg/dL (1.8-2.4); POTASSIUM 3.9 mmol/L (3.5-5.1)
--- NOTE | 2021-02-19 06:54 | NUR ---
RN CLOSING NOTE: PATIENT REMAINS IN ROOM IN NO SIGNS OF RESPIRATORY DISTRESS, PATIENT ON 5L OF 02 VIA NC ;TOLERATING WELL SATURATING @ >95% SP02. SAFETY MEASURES IMPLEMENTED, BED IN LOWEST POSITION, LOCKED, SIDE RAILS UP, CALL LIGHT WITHIN REACH. ALL NEEDS AND ORDERS ADDRESSED DURING THE SHIFT. IV ACCESS MAINTAINED INTACT, SECURED AND FLUSHING WELL. ALL DUE MEDS GIVEN ORDERED & SCHEDULED ; PATIENT TOLERATED WELL. PATIENT KEPT CLEAN & COMFORTABLE WITHIN THE SHIFT. PATIENT ENDORSED TO INCOMING SHIFT RN WITH STABLE VITAL SIGN AND FOR CONTINUITY OF CARE.
--- NOTE | 2021-02-19 07:20 | NUR ---
RN NOTE PATIENT IS IN BED WITH HOB AT SEMI FOWLERS POSITION. PATIENT IS ON 5L NC WITH NO SIGNS OF LABORED BREATHING. PATIENT IS AOX4. MEHREEN MIDLINE IS PATENT AND INTACT. BED IS LOCKED IN THE LOWEST POSITION, 3 GUARD RAILS RAISED, CALL MORALES WITHIN REACH, AND ALL HOSPITAL SAFETY PRECAUTIONS ARE BEING FOLLOWED. WILL CONTINUE TO MONITOR THROUGHOUT SHIFT.
[2021-02-19 08:00] VITALS: BP 148/84
[2021-02-19] MEDS: PANTOPRAZOLE 40 MG TABLET.DR PO SCH (08:04)
[2021-02-19] MEDS: DEXAMETHASONE SOD PHOSPHATE 10 MG/ML VIAL IV SCH (08:04)
[2021-02-19] MEDS: ENOXAPARIN SODIUM 40 MG/0.4 ML DISP.SYRIN SQ SCH ×2 (08:06→20:32)
[2021-02-19] MEDS: FLUTICASONE/VILANTEROL 1 EACH BLST.W.DEV IH SCH (08:07)
[2021-02-19 12:00] VITALS: BP 148/96
[2021-02-19 16:00] VITALS: BP 116/77
[2021-02-19] MEDS: IV LR 1000 ML 1,000 ML IV PRN (16:41)
--- NOTE | 2021-02-19 18:42 | NUR ---
RN NOTE PATIENT IS IN BED WITH HOB AT SEMI FOWLERS POSITION. PATIENT IS ON 5L NC WITH NO SIGNS OF LABORED BREATHING. PATIENT IS AOX4. MEHREEN MIDLINE IS PATENT AND INTACT. BED IS LOCKED IN THE LOWEST POSITION, 3 GUARD RAILS RAISED, CALL MORALES WITHIN REACH, AND ALL HOSPITAL SAFETY PRECAUTIONS ARE BEING FOLLOWED. ALL DUE MEDS GIVEN AND PATIENT REMAINED STABLE THROUGHOUT SHIFT. WILL ENDORSE TO ASSISTANT ATTORNEY GENERAL RN.
[2021-02-19 21:17] VITALS: BP 131/91
[2021-02-19] MEDS: TEMAZEPAM 7.5 MG CAPSULE PO SCH (22:58)
[2021-02-20] VITALS: BP 142/94
[2021-02-20 04:00] VITALS: BP 135/82
[2021-02-20 05:35] LABS: BASOPHILS % (AUTO) 0.2 % (0.0-2.0); EOSINOPHILS % (AUTO) 0.1 % (0.0-6.0); HEMATOCRIT 42 % (39-51); HEMOGLOBIN 14.2 g/dL (13.5-17.5); LYMPHOCYTES # (AUTO) 2.6 K/uL (0.8-4.8); LYMPHOCYTES % (AUTO) 24.7 % (20.0-44.0); MEAN CORPUSCULAR HGB CONC 34 g/dl (31.0-36.0); MEAN CORPUSCULAR VOLUME 86 fL (80-96); MONOCYTES # (AUTO) 0.9 K/uL (0.1-1.30); MONOCYTES % (AUTO) 8.7 % (2.0-12.0); NEUTROPHILS # (AUTO) 6.9 K/uL (1.8-8.9); NEUTROPHILS % (AUTO) 66.3 % (43.0-81.0); PLATELET COUNT (AUTO) 282 K/uL (150-450); RED BLOOD CELL COUNT(AUTO) 4.89 MIL/uL (4.5-6.0); WHITE BLOOD COUNT (AUTO) 10.4 K/uL (4.3-11.0)
[2021-02-20 06:26] LABS: CALCIUM, SERUM 7.7 mg/dL (8.5-10.1); CREATININE 1.1 mg/dL (0.6-1.3); MAGNESIUM 2.2 mg/dL (1.8-2.4); POTASSIUM 3.7 mmol/L (3.5-5.1)
--- NOTE | 2021-02-20 07:06 | NUR ---
RN NOTE PATIENT A/O X4, IN BED ON NC AT 5LPM VIA NC SATURATING 93%, NO SOB/ACUTE DISTRESS NOTED THROUGHOUT THE NIGHT, AFEBRILE, BED LOCKED AND LOWEST POSITION, S/R OF BED X2 UP, CALL MORALES WITHIN REACH, ALL SAFETY PRECAUTIONS IN PLACED, WILL ENDORSE CONTINUITY OF CARE TO ONCOMING NURSE.
--- NOTE | 2021-02-20 07:32 | NUR ---
RN NOTE PATIENT IS IN BED PRONE. PATIENT IS ON 5L NC WITH NO SIGNS OF RESPIRATORY DISTRESS. PATIENT IS AOX4. MEHREEN MIDLINE IS PATENT AND INTACT. BED IS LOCKED IN THE LOWEST POSITION, 3 GUARD RAILS RAISED, CALL MORALES WITHIN REACH, AND ALL HOSPITAL SAFETY PRECAUTIONS ARE BEING FOLLOWED. WILL CONTINUE TO MONITOR THROUGHOUT SHIFT.
[2021-02-20 08:00] VITALS: BP 148/84
[2021-02-20] MEDS: PANTOPRAZOLE 40 MG TABLET.DR PO SCH (08:28)
[2021-02-20] MEDS: FLUTICASONE/VILANTEROL 1 EACH BLST.W.DEV IH SCH (08:29)
[2021-02-20] MEDS: ENOXAPARIN SODIUM 40 MG/0.4 ML DISP.SYRIN SQ SCH ×2 (08:29→21:01)
--- NOTE | 2021-02-20 11:38 | NUR ---
NURSES NOTE [employer] SAW PT. [employer] LOWERED O2 NC FROM 5L TO 4L, SPO2 IS CURRENTLY 95
[2021-02-20 12:00] VITALS: BP 143/93
[2021-02-20 16:00] VITALS: BP 146/69
[2021-02-20] MEDS: IV LR 1000 ML 1,000 ML IV PRN (17:09)
--- NOTE | 2021-02-20 18:50 | NUR ---
RN NOTE PATIENT IS IN BED PRONE. PATIENT IS ON 4L NC WITH NO SIGNS OF RESPIRATORY DISTRESS. PATIENT IS AOX4. MEHREEN MIDLINE IS PATENT AND INTACT. BED IS LOCKED IN THE LOWEST POSITION, 3 GUARD RAILS RAISED, CALL MORALES WITHIN REACH, AND ALL HOSPITAL SAFETY PRECAUTIONS ARE BEING FOLLOWED. ALL DUE MEDS GIVEN AND PATIENT REMAINED STABLE THROUGHOUT SHIFT.
--- NOTE | 2021-02-20 19:24 | NUR ---
LENDING ACTIVITIES SUPERVISOR NOTES PATIENT IS IN BED . PATIENT IS ON 4L NC WITH NO SIGNS OF RESPIRATORY DISTRESS OR PAIN AT THIS TIME.. MEHREEN MIDLINE IS PATENT AND INTACT. BED IS LOCKED IN THE LOWEST POSITION, 3 GUARD RAILS RAISED, CALL MORALES WITHIN REACH, AND ALL HOSPITAL SAFETY PRECAUTIONS ARE BEING FOLLOWED. ALL NURSING NEEDS MET AT THIS TIME. WILL CONTINUE TO MONITOR.
[2021-02-20 20:00] VITALS: BP 125/87
[2021-02-20] MEDS: TEMAZEPAM 7.5 MG CAPSULE PO SCH (21:01)
--- NOTE | 2021-02-20 21:19 | NUR ---
RN NOTES PT OXYGEN TITRATED TO 3L PT TOLERATING WELL 97-98 % O2 SAT . WILL CONTINUE TO MONITOR.
[2021-02-21] VITALS: BP 121/56
[2021-02-21 04:00] VITALS: BP 145/89
--- NOTE | 2021-02-21 04:00 | NUR ---
RN NOTES PT O2 TITRATED TO 2 L PT IS TOLERATING WELL 97-98% O2 SAT WILL CONTINUE TO MONITOR.
--- NOTE | 2021-02-21 06:22 | NUR ---
RN NOTES PATIENT IS IN BED . PATIENT IS ON 2L NC WITH NO SIGNS OF RESPIRATORY DISTRESS OR PAIN AT THIS TIME.. MEHREEN MIDLINE IS PATENT AND INTACT. BED IS LOCKED IN THE LOWEST POSITION, 3 GUARD RAILS RAISED, CALL MORALES WITHIN REACH, AND ALL HOSPITAL SAFETY PRECAUTIONS ARE BEING FOLLOWED. ALL NURSING NEEDS MET AT THIS TIME. ALL DUE MEDS GIVEN AND TOLERATED WELL. WILL ENDORSE TO DAY SHIFT NURSE.
[2021-02-21 06:29] LABS: CALCIUM, SERUM 7.9 mg/dL (8.5-10.1); MAGNESIUM 2.2 mg/dL (1.8-2.4); PHOSPHORUS 4.2 mg/dL (2.5-4.9); POTASSIUM 3.7 mmol/L (3.5-5.1)
--- NOTE | 2021-02-21 07:15 | NUR ---
RN NOTE PATIENT OBSERVED IN BED, AWAKE ALERT AND ORIENTED X4, ABLE TO VERBALIZE NEEDS ON O2 VIA NC @2LPM O2 SAT OF 97%, BREATHING EVEN AND UNLABORED, WITH MEHREEN MIDLINE PATENT INFUSING WELL, ON TELE MONITOR SR HR OF 81, BED WHEELS LOCK, CALL LIGHT WITHIN REACH, SAFETY MEASURES OBSERVED, WILL CONTINUE TO MONITOR.
[2021-02-21 08:00] VITALS: BP 144/87
[2021-02-21 08:08] LABS: BASOPHILS # (AUTO) 0.1 K/uL (0.0-0.2); BASOPHILS % (AUTO) 0.8 % (0.0-2.0); EOSINOPHILS % (AUTO) 0.1 % (0.0-6.0); HEMATOCRIT 44 % (39-51); HEMOGLOBIN 14.5 g/dL (13.5-17.5); LYMPHOCYTES # (AUTO) 3.3 K/uL (0.8-4.8); LYMPHOCYTES % (AUTO) 44.9 % (20.0-44.0); MEAN CORPUSCULAR HGB CONC 33 g/dl (31.0-36.0); MEAN CORPUSCULAR VOLUME 87 fL (80-96); MONOCYTES # (AUTO) 0.7 K/uL (0.1-1.30); NEUTROPHILS # (AUTO) 3.3 K/uL (1.8-8.9); NEUTROPHILS % (AUTO) 45.2 % (43.0-81.0); PLATELET COUNT (AUTO) 301 K/uL (150-450); RED BLOOD CELL COUNT(AUTO) 5.06 MIL/uL (4.5-6.0); WHITE BLOOD COUNT (AUTO) 7.3 K/uL (4.3-11.0)
[2021-02-21] MEDS: PANTOPRAZOLE 40 MG TABLET.DR PO SCH (08:45)
[2021-02-21] MEDS: ENOXAPARIN SODIUM 40 MG/0.4 ML DISP.SYRIN SQ SCH ×2 (08:46→20:00)
[2021-02-21] MEDS: FLUTICASONE/VILANTEROL 1 EACH BLST.W.DEV IH SCH (08:47)
[2021-02-21 11:31] LABS: ABG BASE EXCESS 2.9 mmol/L; ABG OXYGEN SATURATION 94.1 % (92.0-98.5); ABG PCO2 37.8 mmHg (35.0-45.0); ABG PH 7.465 (7.350-7.450); ABG PO2 67.9 mmHg (75.0-100.0); AaDO2 87.1 mmHg; COHb 0.3 % (0.5-1.5); MetHb 0.4 % (0.0-1.5); O2Hb 93.4 % (94.0-97.0); SITE, ABG Right Brachial; VENT MODE, BG N/C
--- NOTE | 2021-02-21 11:45 | NUR ---
RN NOTE OBSERVED PATIENT ON ROOM AIR PATIENT REMOVED O2 VIA NC O2 SAT OF 87% , REPLACE O2 VIA NC @ 2LPM O2 SATURATION 95% BREATHING EVEN AND UNLABORED TOLERATING WELL.
[2021-02-21 12:00] VITALS: BP 142/84
--- NOTE | 2021-02-21 12:39 | NUR ---
RN NOTE PATIENT ABG RESULT DR. BOYER NOTIFIED.
[2021-02-21 16:00] VITALS: BP 142/81
--- NOTE | 2021-02-21 19:00 | NUR ---
RN NOTE RECEIVED PATIENT ALERT ORIENTED X4 VERBALLY RESPONSIVE NO SOB NOT ACUTE DISTRESS NOTED ON 2L OXYGEN VIA NASAL CANNULA, O2:97% WAITING FOR OXYGEN TANK DELIVERY FOR DISCHARGE HOME,AMBULATORY CONTINENT TO BOWL/BLADDER,SAFETY MEASURE IMPLEMENT CALL LIGHT WITHIN REACH CONTINUE TO MONITOR.
--- NOTE | 2021-02-21 19:12 | NUR ---
RN NOTE PATIENT OBSERVED IN BED, AWAKE ALERT AND ORIENTED X4, ABLE TO VERBALIZE NEEDS ON O2 VIA NC @2LPM O2 SAT OF 97%, BREATHING EVEN AND UNLABORED, PATIENT FOR DISCHARGE WAITING FOR O2 TANK TO BE DELIVERED, SWITCHBOARD WIRER MARCELA TAYLOR 6-7PM FOR THE O2 DELIVERY, PATIENTIS UPSET AT THIS TIME, DISCHARGE PAPER WORKS DONE , BED WHEELS LOCK, CALL LIGHT WITHIN REACH, SAFETY MEASURES OBSERVED, WILL CONTINUE TO MONITOR. NOC SHIFT DYLAN MADE AWARE.
[2021-02-21 20:00] VITALS: BP 138/79
--- NOTE | 2021-02-21 20:03 | NUR ---
RN NOTE PATIENT REFUSED TO HAVE LOVENOX INJECTION,EXPLAINED RISKS AND BENEFITS STILL STRONGLY REFUSED CONTINUE TO MONITOR.
--- NOTE | 2021-02-21 20:58 | NUR ---
RN NOTE PATIENT DISCHARGE HOME IN STABLE CONDITION,ALERT ORIENTED X4 VERBALLY RESPONSIVE NO SOB NOT ACUTE DISTRESS NOTED,WE RECEIVED OXYGEN TANK AND CONSECRATOR FOR DISCHARGE,HE SIGNED ALL DISCHARGE PAPER AND BELONGINGS HE LEFT HOSPITAL IN STABLE CONDITION WITH HIS BY PRIVATE CAR.
== END 2021-02-21 21:39 | disposition home or self-care (01) | DRG 137 ==
LOC: ER 20:13 → TELE1 22:48 → ICU 02-09 09:57 → TELE-TD 02-16 18:43 → TELE1 02-18 08:25
PROVIDERS: ADMIT Nurse Practitioner Acute Care; ATTEND Internal Medicine
PROC: XW033E5 Introduction of Remdesivir Anti-infective into Peripheral Vein, Percutaneous Approach, New Technology Group 5 (ICD-10-PCS; principal; 2021-02-09)
PROC: XW033H5 Introduction of Tocilizumab into Peripheral Vein, Percutaneous Approach, New Technology Group 5 (ICD-10-PCS; 2021-02-09)
PROC: 05HC33Z Insertion of Infusion Device into Left Basilic Vein, Percutaneous Approach (ICD-10-PCS; 2021-02-09)
DX: U07.1 COVID-19 (principal); J96.01 Acute respiratory failure with hypoxia; N17.0 Acute kidney failure with tubular necrosis; J12.82 Pneumonia due to coronavirus disease 2019; E87.2 Acidosis; J15.9 Unspecified bacterial pneumonia; E86.0 Dehydration; E66.9 Obesity, unspecified; T38.0X5A Adverse effect of glucocorticoids and synthetic analogues, initial encounter; Y92.9 Unspecified place or not applicable; R94.6 Abnormal results of thyroid function studies; R73.9 Hyperglycemia, unspecified; Z68.26 Body mass index [BMI] 26.0-26.9, adult
CPT/HCPCS: 36415; 36600; 71045-TC; 80048-TC; 80053-TC; 80061-TC; 80076-TC; 82247-TC; 82248-TC; 82550-TC; 82728-TC; 82803-TC; 83605-TC; 83615-TC; 83735-TC; 83880; 84100-TC; 84443-TC; 84484-TC; 85025-TC; 85378-TC; 85385-TC; 85610-TC; 85730-TC; 86140-TC; 86480; 86803; 87040-TC; 87081-TC; 87806; 87899; 94760-TC; 94799-TC; 97116-TC; 97530-TC; 99082-TC; A4216; A6403; G0378; J0456; J0696; J1100; J1650; J3262; J7030; J7050; J7060; J7120; U0003

== ENCOUNTER 2021-11-11 02:20 | Emergency (ER) | payer MEDICARE, OTHER ==
[~2021-11-11] VITALS: Ht 182.9 cm; Wt 93.0 kg
[~2021-11-11 02:20] MED LIST: ALBU18HF2 INH; BENZ-38 PO; DEXA4TAB PO; LEVO500T90 PO
--- NOTE | 2021-11-11 02:55 | NUR ---
BIBS A/O X3 C/O HEADACHE, HIGH BP SYSTOLICS IN THE 190'S AT HOME TRIAGE BP 211/142.
[2021-11-11] MEDS ORDERED: hydrALAZINE HCL IV 20 MG VIAL IV ONE ×2 (03:00→04:30)
[2021-11-11] MEDS ORDERED: hydrALAZINE HCL IV 20 MG VIAL ONE ×2 (03:03→04:16)
--- NOTE | 2021-11-11 03:26 | NUR ---
URINE COLLECTED AND SENT TO LAB
[2021-11-11 03:49] LABS: BASOPHILS # (AUTO) 0.1 K/uL (0.0-0.2); BASOPHILS % (AUTO) 0.9 % (0.0-2.0); EOSINOPHILS % (AUTO) 3.1 % (0.0-6.0); HEMATOCRIT 50 % (39-51); LYMPHOCYTES # (AUTO) 3.1 K/uL (0.8-4.8); LYMPHOCYTES % (AUTO) 44.3 % (20.0-44.0); MEAN CORPUSCULAR HGB CONC 34 g/dl (31.0-36.0); MEAN CORPUSCULAR VOLUME 85 fL (80-96); MONOCYTES # (AUTO) 0.4 K/uL (0.1-1.30); MONOCYTES % (AUTO) 6.3 % (2.0-12.0); NEUTROPHILS # (AUTO) 3.2 K/uL (1.8-8.9); NEUTROPHILS % (AUTO) 45.4 % (43.0-81.0); PLATELET COUNT (AUTO) 231 K/uL (150-450); RED BLOOD CELL COUNT(AUTO) 5.84 MIL/uL (4.5-6.0)
--- NOTE | 2021-11-11 03:50 | NUR ---
NOTIFIED OF BP
[2021-11-11 03:51] LABS: BILIRUBIN,URINE NEGATIVE (NEGATIVE); COLOR,URINE YELLOW (YELLOW); LEUKOCYTE ESTERASE ,URINE NEGATIVE (NEGATIVE); NITRITE, URINE NEGATIVE (NEGATIVE); PH,URINE 6.5 (5.0-8.0); PROTEIN,URINE NEGATIVE (NEGATIVE); UGLUCOSE NEGATIVE (NEGATIVE); UROBILINOGEN,URINE 0.2 EU/dL (0.2)
[2021-11-11 04:04] LABS: CALCIUM, SERUM 9.2 mg/dL (8.5-10.1); CARBON DIOXIDE 32 mmol/L (21-32); CHLORIDE 102 mmol/L (98-107); CREATININE 1.1 mg/dL (0.6-1.3); GLUCOSE 134 mg/dL (74-106); POTASSIUM 3.6 mmol/L (3.5-5.1); SODIUM SERUM 140 mmol/L (136-145); UREA NITROGEN, BLOOD 13 mg/dL (7-18)
--- NOTE | 2021-11-11 04:20 | NUR ---
NOTIFIED OF BP
[2021-11-11 04:23] LABS: ALANINE AMINOTRANSFERASE 27 U/L (12-78); ALKALINE PHOSPHATASE 85 U/L (46-116); BILIRUBIN,DIRECT 0.1 mg/dL (0.0-0.2); BILIRUBIN,TOTAL 0.5 mg/dL (0.2-1.0); TOTAL PROTEIN, SERUM 8.1 g/dL (6.4-8.2)
--- NOTE | 2021-11-11 04:31 | NUR ---
Followed up with [facility] regarding imaging result, imaging placed on que
[2021-11-11 04:34] LABS: ASPARTATE AMINOTRANSFERASE 19 U/L (15-37)
[2021-11-11 05:02] VITALS: BP 163/96
--- NOTE | 2021-11-11 05:02 | NUR ---
PT DISCHARGED IN STABLE CONDITION.
== END 2021-11-11 05:03 | disposition home or self-care (01) ==
LOC: ER 02:32
DX: I16.0 Hypertensive urgency (principal); R51.9 Headache, unspecified; R42 Dizziness and giddiness; Z79.899 Other long term (current) drug therapy
CPT/HCPCS: 36415; 70450; 71045; 80048; 80076; 81003; 84484; 85025; 85730; 93005; 96374; 96376; 99285; J0360 ×2

== ENCOUNTER 2022-03-30 16:51 | Emergency (ER) | payer MEDICARE, OTHER ==
[~2022-03-30] VITALS: Ht 177.8 cm; Wt 91.6 kg
[2022-03-30 17:42] VITALS: BP 160/106
[2022-03-30] MEDS ORDERED: KETO10TA2 PO (18:31)
[2022-03-30] MEDS ORDERED: CYCL5TAB PO (18:31)
--- NOTE | 2022-03-30 18:43 | NUR ---
Patient discharged to home in stable condition. Written and verbal after care instructions given. Patient verbalizes understanding of instruction.
== END 2022-03-30 18:43 | disposition home or self-care (01) ==
LOC: ER 16:59
DX: S13.4XXA Sprain of ligaments of cervical spine, initial encounter (principal); Z79.899 Other long term (current) drug therapy; V49.49XA Driver injured in collision with other motor vehicles in traffic accident, initial encounter; Y93.89 Activity, other specified; Y92.413 State road as the place of occurrence of the external cause; Y99.8 Other external cause status